=== PATIENT | female | born 1975 | race Caucasian/White ===

== ENCOUNTER 2020-10-29 14:15 | Emergency (ER) | payer OTHER ==
[2021-02-05] MEDS ORDERED: HYDROCODON-ACE1 EAC4 PO (10:15)
[2021-02-05] MEDS ORDERED: LABETALOL HCL100 MG PO (10:16)
[2021-02-05] MEDS ORDERED: FERROUS SULFAT325 MG PO (10:17)
[2021-02-05] MEDS ORDERED: VITAMIN D31250 MCG PO (10:17)
== END 2020-10-29 14:56 | disposition home or self-care (01) ==
LOC: ER1 14:15
DX: S90.32XA Contusion of left foot, initial encounter (principal); M79.662 Pain in left lower leg; I10 Essential (primary) hypertension; F17.200 Nicotine dependence, unspecified, uncomplicated; W20.8XXA Other cause of strike by thrown, projected or falling object, initial encounter
CPT/HCPCS: 73590; 73630; 99283

== ENCOUNTER 2021-01-26 08:53 | Emergency (ER) | payer OTHER ==
[2021-01-26 09:48] LABS: HEMOGLOBIN 13.9 gm/dl (12.3-15.3); RED BLOOD COUNT 4.69 M/UL (4.00-5.10); WHITE BLOOD COUNT 9.7 K/UL (4.5-11.0)
[2021-01-26 11:15] LABS: BUN/CREATININE RATIO 17 (0-10)
[2021-01-26] MEDS ORDERED: HYDROCODON-ACE1 EAC4 PO (12:06)
[2021-01-26] MEDS ORDERED: OMNICEF 300 MG300 MG PO (12:06)
[2021-01-26] MEDS ORDERED: FLOMAX0.4 MG PO (12:06)
[2021-02-05] MEDS ORDERED: HYDROCODON-ACE1 EAC4 PO (10:15)
[2021-02-05] MEDS ORDERED: LABETALOL HCL100 MG PO (10:16)
[2021-02-05] MEDS ORDERED: FERROUS SULFAT325 MG PO (10:17)
[2021-02-05] MEDS ORDERED: VITAMIN D31250 MCG PO (10:17)
== END 2021-01-26 12:24 | disposition home or self-care (01) ==
LOC: ER1 08:53
PROVIDERS: Emergency Medicine
DX: N13.2 Hydronephrosis with renal and ureteral calculous obstruction (principal); I10 Essential (primary) hypertension; F17.200 Nicotine dependence, unspecified, uncomplicated
CPT/HCPCS: 80053; 81001; 84703; 85025; 87040; 87077; 87086; 87186; 96374; 96375; 99284; J0696; J2270; J2405

== ENCOUNTER → 2021-01-30 | Outpatient (CLI) | payer OTHER ==
[~2021-01-30] MED LIST: FERROUS SULFAT325 MG PO; FLOMAX0.4 MG PO; HYDROCODON-ACE1 EAC4 PO; LABETALOL HCL100 MG PO; OMNICEF 300 MG300 MG PO; VITAMIN D31250 MCG PO
== END ==
LOC: EXRD 09:17
DX: N20.1 Calculus of ureter (principal); R14.3 Flatulence
CPT/HCPCS: 74018

== ENCOUNTER → 2021-02-05 | Outpatient (CLI) | payer OTHER | LOC: OPSV2 09:30 | DX: Z01.818 Encounter for other preprocedural examination (principal) | CPT/HCPCS: 93005 ==

== ENCOUNTER → 2021-02-07 | Day surgery (SDC) | payer OTHER | END | disposition home or self-care (01) | LOC: OR 07:36 | DX: N13.6 Pyonephrosis (principal); B96.1 Klebsiella pneumoniae [K. pneumoniae] as the cause of diseases classified elsewhere; F17.200 Nicotine dependence, unspecified, uncomplicated; F41.9 Anxiety disorder, unspecified; I10 Essential (primary) hypertension; D50.9 Iron deficiency anemia, unspecified; E55.9 Vitamin D deficiency, unspecified; J44.9 Chronic obstructive pulmonary disease, unspecified | CPT/HCPCS: 84703; C1769; C1894; C2617; J1100; J1956; J2250; J2405; J2704; J3010; J7030; J7120 ==

== ENCOUNTER → 2022-04-01 | Outpatient (CLI) | payer OTHER | LOC: MAMO 09:30 | DX: Z12.31 Encounter for screening mammogram for malignant neoplasm of breast (principal); R92.2 Inconclusive mammogram; N64.89 Other specified disorders of breast | CPT/HCPCS: 77063; 77067 ==

== ENCOUNTER → 2022-04-28 | Outpatient (CLI) | payer OTHER | LOC: MAMO 04-21 10:00 → US 04-21 13:30 → MAMO 14:00 | DX: R92.2 Inconclusive mammogram (principal) | CPT/HCPCS: 76641-LT; 76641-RT; 77066; G0279 ==